=== PATIENT | female | born 2005 | race African-American/Black ===

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

== ENCOUNTER 2024-04-07 20:21 | Emergency (ER) | payer OTHER ==
[~2024-04-07] VITALS: Ht 165.1 cm; Wt 63.5 kg
[2024-04-07 20:43] LABS: BASOPHILS ABSOLUTE AUTO 0.02 K/mm3 (0.00-0.23); BASOPHILS PERCENT AUTO 0 % (0-2); EOSINOPHILS ABSOLUTE AUTO 0.04 K/mm3 (0.00-0.68); EOSINOPHILS PERCENT AUTO 1 % (0-6); Hematocrit 36.4 % (33.0-51.0); Hemoglobin 12.1 g/dL (11.5-16.0); IMMATURE GRAN ABSOLUTE AUTO 0.03 K/mm3 (0.00-0.10); IMMATURE GRAN PERCENT AUTO 1 % (0-1); LYMPHOCYTES ABSOLUTE AUTO 2.27 K/mm3 (0.84-5.20); LYMPHOCYTES PERCENT AUTO 37 % (21-46); MONOCYTES ABSOLUTE AUTO 0.46 K/mm3 (0.16-1.47); MONOCYTES PERCENT AUTO 8 % (4-13); Mean Corpuscular HGB 30.5 pg (26.0-34.0); Mean Corpuscular HGB Conc 33.2 g/dL (31.5-36.5); Mean Corpuscular Volume 92 fL (80-100); Mean Platelet Volume 9.8 fL (9.1-12.4); NEUTROPHILS ABSOLUTE AUTO 3.29 K/mm3 (1.96-9.15); NEUTROPHILS PERCENT AUTO 54 % (41-73); Platelet Count 208 K/mm3 (150-400); RDW Coefficient Variation 12.1 % (11.7-14.2); RDW Standard Deviation 40.6 fL (35.1-46.3); Red Blood Cell Count 3.97 M/mm3 (3.80-5.20); White Blood Cell Count 6.11 K/mm3 (4.00-11.30)
[2024-04-07 21:06] LABS: Albumin, Blood 4.1 g/dL (3.4-5.0); Albumin/Globulin Ratio 1.5 (0.8-1.8); Bun/Creatinine Ratio 22.2 (12.0-20.0); Calcium, Blood 9.4 mg/dL (8.5-10.1); Creatinine, Blood 0.63 mg/dL (0.40-1.00); Globulin, Blood 2.8 g/dL (2.2-4.0); Potassium, Blood 3.9 mmol/L (3.5-5.5); Total Protein, Blood 6.9 g/dL (6.4-8.2)
[2024-04-07] MEDS ORDERED: NS 1,000 ML IV SCH (21:50)
[2024-04-08 00:43] VITALS: BP 112/76
== END 2024-04-08 00:57 | disposition home or self-care (01) ==
LOC: ER 20:21
PROVIDERS: Student in an Organized Health Care Education/Training Program
DX: R55 Syncope and collapse (principal)
CPT/HCPCS: 71046; 80053; 84484; 84703; 85025; 93005; 93010; 96360; 99284-25; J7030

== ENCOUNTER 2024-05-22 22:40 | Emergency (ER) | payer OTHER ==
[~2024-05-22] VITALS: Ht 165.1 cm; Wt 62.6 kg
[2024-05-22] MEDS ORDERED: Lidocaine/Tetracaine/Epinephr 3 ML GEL SYRINGE TOP ONE (23:55)
[2024-05-23] VITALS (15 sets, daily range): BP systolic 113–130; BP diastolic 69–87
[2024-05-23] MEDS ORDERED: FentaNYL Citrate 50 MCG/ML 2 ML Injection IV PRN (00:25)
[2024-05-23] MEDS ORDERED: CeFAZolin Sodium 1,000 MG in NS 50 ML IV ONE ×2 (01:05→01:40)
[2024-05-23] MEDS ORDERED: HYDROcodone 5-APAP 325 TAB PO ONE ×2 (01:30→07:30)
[2024-05-23] MEDS ORDERED: Ketorolac Tromethamine 30mg Vial IV ONE (05:15)
[2024-05-23] MEDS ORDERED: CEPH500 PO (06:57)
[2024-05-23] MEDS ORDERED: HYDROmorphone HCl/Pf 1MG SYR IV ONE (07:05)
[2024-05-23] MEDS ORDERED: Ondansetron HCl 2 MG / ML 2ML Vial IV ONE (09:30)
[2024-05-23] MEDS ORDERED: Lactated Ringer's 1,000 ML IV SCH (11:55)
[2024-05-23] MEDS ORDERED: Midazolam HCl 1MG / ML 2ML Vial ONE (13:25)
[2024-05-23] MEDS ORDERED: propofoL 20 ML IV ONE ×2 (13:25→13:30)
[2024-05-23] MEDS ORDERED: FentaNYL Citrate 50 MCG/ML 2 ML Injection ONE (13:25)
[2024-05-23] MEDS ORDERED: Phenylephrine HCl 100 MCG/ML-NS 10MLSYR (1MG/10ML) ONE (13:42)
[2024-05-23] MEDS ORDERED: Ketorolac Tromethamine 30mg Vial ONE (13:45)
[2024-05-23] MEDS ORDERED: Bupivacaine 0.5% HCl 5 MG/ML 30MLVIAL ONE (14:25)
[2024-05-23] MEDS ORDERED: HYDROcodone 5-APAP 325 TAB PO PRN (14:55)
--- NOTE | 2024-05-23 17:27 | NUR ---
DISCHARGE NOTE PT ABLE TO MOVE SELF TO WC, VSS, TOLERATING PO INTAKE, MOM AND AUNT AT BEDSIDE. Discharge instructions reviewed with MOM. Patient verbalizes understanding. Copy given to patient to take home. Dressing to procedure site clean, dry, intact with no visible drainage, swelling, erythema or bruising noted. WARM PACKS IN PLACE TO L ARM AT INFILTRATED IV SITE- SKIN AROUND SITE WAS SOFT AND SWELLING APPEARD TO DECREASE DURING DSU STAY. Discharged via wheelchair to private car for ride home. PT REMAINED VERY SLEEPY AND DIFFICULT TO AROUSE UNTIL 1700, PT EXPRESSED FEAR OF GETTING BACK INTO A CAR AND WAS TEARFUL UPON DISCHARGE. NO PAIN MEDICATION WAS GIVEN IN DSU 2/2 PT DIFFICULT TIME REMAINING AWAKE AND RESPONSIVE IN DSU. PT REPORTED SORENESS TO OPERATIVE SITE BUT HAD DIFFICULTY RATING PAIN, ICE WAS APPLIED.
== END 2024-05-23 11:53 | disposition home or self-care (01) ==
LOC: ER 22:40 → SURS 05-23 11:39 → ER 05-23 11:53
DX: S81.011A Laceration without foreign body, right knee, initial encounter (principal); S80.12XA Contusion of left lower leg, initial encounter; V50.6XXA Passenger in pick-up truck or van injured in collision with pedestrian or animal in traffic accident, initial encounter
CPT/HCPCS: 73562-RT; 96365-59; 96375-59; 99285-25; A9270; J0690; J1170; J1885; J2250; J2371; J2405; J2704; J3010